=== PATIENT | male | born 1965 | race Caucasian/White ===

== ENCOUNTER 2018-04-26 11:58 | Emergency (ER) | payer OTHER ==
[~2018-04-26] VITALS: Ht 172.7 cm; Wt 102.1 kg
--- NOTE | 2018-04-26 12:04 | NUR ---
PT AMBULATES TO BED 4
[2018-04-26 12:05] VITALS: BP 134/74
--- NOTE | 2018-04-26 12:11 | NUR ---
PT PRESENT TO ED DUE TO FLU LIKE SYMPTOMS; C/O PRODUCTIVE COUGH/ RUNNY NOSE ANDBODY ACHES X 1 WEEK; DENIES SOB/CP/FEVER; AAOX 4;AMBULATORY;SAFETY PRECAUTION INSTITUTED;NEEDS ATTENDED;ER MD AT BEDSIDE.
[2018-04-26 12:19] VITALS: BP 134/74
--- NOTE | 2018-04-26 12:19 | NUR ---
Patient discharged with v/s stable. Written and verbal after care instructions given and explained. Patient alert, oriented and verbalized understanding of instructions. Ambulatory with steady gait. All questions addressed prior to discharge. ID band removed. Patient advised to follow up with PMD. Rx of AUGMENTIN AND PROMTHAZINE DM given. Patient educated on indication of medication including possible reaction and side effects. Opportunity to ask questions provided and answered.PT D'CD BY DR MANCINI.
== END 2018-04-26 12:19 | disposition home or self-care (01) ==
LOC: MED 11:58
DX: J02.9 Acute pharyngitis, unspecified (principal); I10 Essential (primary) hypertension; E11.9 Type 2 diabetes mellitus without complications; Z90.89 Acquired absence of other organs
CPT/HCPCS: 99283

== ENCOUNTER 2018-06-11 17:49 | Emergency (ER) | payer OTHER ==
[~2018-06-11] VITALS: Ht 167.6 cm; Wt 95.3 kg
[2018-06-11 18:00] VITALS: BP 115/58
[2018-06-11 19:38] VITALS: BP 110/69
== END 2018-06-11 19:38 | disposition home or self-care (01) ==
LOC: MED 17:49
DX: M17.12 Unilateral primary osteoarthritis, left knee (principal)
CPT/HCPCS: 73562; 99284; Q0092